=== PATIENT | female | born 1990 | race Two or more races ===

== ENCOUNTER 2023-07-24 14:20 | Emergency (ER) | payer MEDICAID ==
[~2023-07-24] VITALS: Ht 165.1 cm; Wt 99.5 kg
[2023-07-24 14:23] VITALS: BP 168/100
[2023-07-24] MEDS ORDERED: LABETALOL HCL 5 MG/ML 4ML SYRINGE IV ONE (14:45)
[2023-07-24 15:14] LABS: Basophils # (auto) 0.1 10 ^3/uL (0-0.2); Eosinophils # (auto) 0.3 10 ^3/uL (0-0.8); Eosinophils % (auto) 2.1 % (0.0-7.0); Lymphocytes % (auto) 45.5 % (10.0-50.0); Neutrophils # (auto) 5.7 10 ^3/uL (1.6-8.6)
[2023-07-24 15:15] LABS: Basophils % (auto) 0.6 % (0.0-2.0); Hematocrit 33.3 % (36.0-46.0); Lymphocytes # (auto) 5.8 10 ^3/uL (0.4-5.4); Mean Corpuscular Hgb Conc. 30.1 g/dL (32.0-36.0); Monocytes # (auto) 0.9 10 ^3/uL (0-1.3); Monocytes % (auto) 6.7 % (0.0-12.0); Neutrophils % (auto) 45.1 % (37.0-80.0); Nucleated Red Blood Cells % 0.3 %; Red Blood Cells 5.54 10^6/uL (4.0-5.20); Red Cell Distribution Width 19.7 % (11.8-14.3); White Blood Cell 12.7 10^3/uL (4.4-10.8)
[2023-07-24 15:21] VITALS: PULSE 76
[2023-07-24 15:21] LABS: Alanine Aminotransferase 24 U/L (7-40); Albumin 4.8 g/dL (3.2-4.8); Alkaline Phosphatase 150 U/L (46-116); Anion Gap 7 (5-15); Aspartate Aminotransferase 43 U/L (13-40); BUN/Creatinine Ratio 11.1 (10.0-20.0); Bilirubin, Total 1.1 mg/dL (0.2-1.0); Blood Urea Nitrogen 9 mg/dL (9-23); Calcium 9.3 mg/dL (8.7-10.4); Carbon Dioxide 25 mmol/L (20-30); Chloride 106 mmol/L (98-107); Glucose 133 mg/dL (74-106); Potassium 4.3 mmol/L (3.5-5.1); Sodium 138 mmol/L (136-145)
[2023-07-24 15:22] LABS: Total Protein 7.7 g/dL (5.7-8.2)
[2023-07-24 16:40] LABS: Platelet Estimate Increased
[2023-07-24 16:41] LABS: Anisocytosis Slight; Hypochromia Marked
[2023-07-24 16:42] LABS: Ovalocytes MODERATE
[2023-07-24] MEDS ORDERED: ALBUTEROL SULF 2.5 MG/0.5ML(0.5%) NEB SOLN NEB ONE (17:15)
[2023-07-24] MEDS ORDERED: IPRATROPIUM BROM 0.5 MG/2.5ML INH SOL NEB ONE (17:15)
[2023-07-24 17:34] VITALS: RESP 20; O2SAT 98
[2023-07-24 19:23] LABS: Urine Bacteria FEW /hpf (None Seen); Urine Blood Negative /uL (Negative); Urine Clarity HAZY (Clear); Urine Color Yellow (Yellow); Urine Protein, UAD TRACE (Negative); Urine Specific Gravity 1.012 (1.001-1.035); Urine Urobilinogen Normal (Negative); Urine WBC 3 /hpf (0 - 5); Urine pH 6.5 (5.0-8.0)
== END 2023-07-24 22:56 | disposition home or self-care (01) ==
LOC: ER 14:20
DX: I10 Essential (primary) hypertension (principal); R10.2 Pelvic and perineal pain; D75.839 Thrombocytosis, unspecified; R07.89 Other chest pain; F32.9 Major depressive disorder, single episode, unspecified; Z98.890 Other specified postprocedural states
CPT/HCPCS: 36415; 71046; 80053; 81001; 84484; 84702; 85025; 85379; 93005; 94640; 99285; J7644